=== PATIENT | male | born 1985 | race African-American/Black ===

== ENCOUNTER 2020-06-16 19:53 | Emergency (ER) | payer MEDICAID, OTHER ==
[~2020-06-16] VITALS: Ht 182.9 cm; Wt 74.8 kg
[2020-06-16] MEDS ORDERED: SODIUM CHLORIDE 0.9% 1,000 ML IV ONE (21:15)
[2020-06-16] MEDS ORDERED: ONDANSETRON HCL 4 MG/2 ML VIAL IV ONE (22:30)
[2020-06-16] MEDS ORDERED: PANTOPRAZOLE 40 MG/10 ML VIAL INJ IV ONE ×2 (22:30→23:43)
[2020-06-16 23:25] LABS: Basophils # (auto) 0 10 ^3/uL (0-0.2); Basophils % (auto) 0.3 % (0.0-2.0); Eosinophils # (auto) 0 10 ^3/uL (0-0.8); Hematocrit 44.2 % (41.0-53.0); Hemoglobin 15.3 g/dL (13.5-17.5); Lymphocytes # (auto) 0.5 10 ^3/uL (0.4-5.4); Lymphocytes % (auto) 7.2 % (10.0-50.0); Mean Corpuscular Hemoglobin 31.4 pg (28.0-32.0); Mean Corpuscular Hgb Conc. 34.5 g/dL (32.0-36.0); Mean Corpuscular Volume 91.1 fL (80.0-100.0); Monocytes # (auto) 0.1 10 ^3/uL (0-1.3); Monocytes % (auto) 1.7 % (0.0-12.0); Neutrophils # (auto) 6.6 10 ^3/uL (1.6-8.6); Neutrophils % (auto) 90.8 % (37.0-80.0); Platelet Count (auto) 252 10^3/uL (140-450); Red Blood Cells 4.86 10^6/uL (4.5-5.90); Red Cell Distribution Width 13.8 % (11.8-14.3); White Blood Cell 7.3 10^3/uL (4.4-10.8)
[2020-06-16 23:41] LABS: Albumin 4.1 g/dL (3.4-5.0); Calcium 9.4 mg/dL (8.5-10.1); Potassium 4.2 mmol/L (3.5-5.1)
[2020-06-16 23:43] LABS: BUN/Creatinine Ratio 8.7; Lactic Acid w/Reflex 2.5 mmol/L (0.4-2.0)
[2020-06-16] MEDS ORDERED: ONDANSETRON HCL 4 MG/2 ML VIAL ONE (23:43)
[2020-06-16 23:46] LABS: Bilirubin, Total 0.4 mg/dL (0.2-1.0); Total Protein 7.5 g/dL (6.4-8.2)
[2020-06-17] MEDS ORDERED: IOHEXOL 300 MG/ML 100ML BOTTLE IJ ONE (00:11)
[2020-06-17] MEDS ORDERED: METOCLOPRAMIDE HCL 5MG/ml INJ 2ml VIAL IV ONE (01:30)
[2020-06-17] MEDS ORDERED: CIPROFLOXACIN 400MG/200ML 200 ML IV ONE (02:15)
[2020-06-17] MEDS ORDERED: metroNIDAZOLE 500MG/100ML 100 ML IV ONE (02:15)
[2020-06-17] MEDS ORDERED: SODIUM CHLORIDE 0.9% 1,000 ML IV ONE ×3 (08:30)
[2020-06-17 09:25] VITALS: BP 106/48
== END 2020-06-17 10:06 | disposition left against medical advice (07) ==
LOC: ER 19:53 → UNDOADMIN 19:54 → OVERFLOW 19:54 → ER 06-17 10:06
DX: R10.31 Right lower quadrant pain (principal); R11.2 Nausea with vomiting, unspecified; R10.12 Left upper quadrant pain; J45.909 Unspecified asthma, uncomplicated; Z20.822 Contact with and (suspected) exposure to COVID-19; Z90.49 Acquired absence of other specified parts of digestive tract
CPT/HCPCS: 36415; 74177; 80053; 83605; 83690; 83735; 85025; 85610; 87426; 93005; 96361; 96365; 96368; 96375; 99285; C9113; C9803; J0744; J2405; J2765; J3490; J7030; J7060; Q9967; U0003

== ENCOUNTER 2020-07-01 13:59 | Emergency (ER) | payer MEDICAID ==
[~2020-07-01] VITALS: Ht 182.9 cm; Wt 74.8 kg
[2020-07-01] MEDS ORDERED: SODIUM CHLORIDE 0.9% 1,000 ML IVB ONE (14:15)
[2020-07-01] MEDS ORDERED: ONDANSETRON HCL 4 MG/2 ML VIAL IV ONE (14:15)
[2020-07-01] MEDS ORDERED: MORPHINE SULFATE 4 MG/ML SYR/VIAL IV ONE (14:15)
[2020-07-01] MEDS ORDERED: IOPAMIDOL 76 % (ISOVUE-370) 100ML BTL IV ONE (14:23)
[2020-07-01 14:32] LABS: Basophils # (auto) 0.1 10 ^3/uL (0-0.2); Basophils % (auto) 2.2 % (0.0-2.0); Eosinophils # (auto) 0.1 10 ^3/uL (0-0.8); Eosinophils % (auto) 2.7 % (0.0-7.0); Hemoglobin 13.8 g/dL (13.5-17.5); Lymphocytes # (auto) 2.2 10 ^3/uL (0.4-5.4); Lymphocytes % (auto) 47.3 % (10.0-50.0); Mean Corpuscular Hemoglobin 31.4 pg (28.0-32.0); Mean Corpuscular Hgb Conc. 34.5 g/dL (32.0-36.0); Mean Corpuscular Volume 91.1 fL (80.0-100.0); Monocytes # (auto) 0.4 10 ^3/uL (0-1.3); Monocytes % (auto) 8.3 % (0.0-12.0); Neutrophils # (auto) 1.8 10 ^3/uL (1.6-8.6); Neutrophils % (auto) 39.5 % (37.0-80.0); Nucleated Red Blood Cells % 0.2 %; Platelet Count (auto) 220 10^3/uL (140-450); Red Blood Cells 4.38 10^6/uL (4.5-5.90); Red Cell Distribution Width 14.3 % (11.8-14.3); White Blood Cell 4.6 10^3/uL (4.4-10.8)
[2020-07-01 14:48] LABS: INR 0.98 (0.9-1.15); Partial Thromboplastin Time 27.1 sec (23.0-31.2)
[2020-07-01 14:50] LABS: Albumin 3.4 g/dL (3.4-5.0); BUN/Creatinine Ratio 6.6; Calcium 8.1 mg/dL (8.5-10.1); Potassium 4.2 mmol/L (3.5-5.1)
[2020-07-01 14:53] LABS: Bilirubin, Total 0.3 mg/dL (0.2-1.0); Total Protein 6.5 g/dL (6.4-8.2)
[2020-07-01 15:15] VITALS: BP 100/63
== END 2020-07-01 15:28 | disposition home or self-care (01) ==
LOC: ER 13:59
DX: R10.31 Right lower quadrant pain (principal); F17.210 Nicotine dependence, cigarettes, uncomplicated; Z90.49 Acquired absence of other specified parts of digestive tract
CPT/HCPCS: 36415; 74177; 80053; 83690; 85025; 85610; 85730; 86850; 86900; 86901; 96361; 96374; 96375; 99285; J2270; J2405; J7030; Q9967

== ENCOUNTER 2020-08-31 21:42 | Emergency (ER) | payer MEDICAID ==
[~2020-08-31] VITALS: Ht 182.9 cm; Wt 86.2 kg
[2020-08-31 21:44] VITALS: BP 120/67
[2020-08-31] MEDS ORDERED: SODIUM CHLORIDE 0.9% 1,000 ML IV ONE ×2 (22:30)
[2020-08-31] MEDS ORDERED: TETRACAINE HCL 0.5% OPTH(EYE) SOLN 4ML EACHEYE ONE (23:00)
[2020-08-31] MEDS ORDERED: FLUORESCEIN SOD OPTH TEST STRIP EACHEYE ONE (23:00)
== END 2020-09-01 00:10 | disposition home or self-care (01) ==
LOC: ER 21:43
DX: T15.92XA Foreign body on external eye, part unspecified, left eye, initial encounter (principal); T15.91XA Foreign body on external eye, part unspecified, right eye, initial encounter; F17.210 Nicotine dependence, cigarettes, uncomplicated; Y92.89 Other specified places as the place of occurrence of the external cause
CPT/HCPCS: 96360; 99284; J7030

== ENCOUNTER → 2020-09-28 05:31 | Emergency (ER) | payer MEDICAID ==
[~2020-09-28] VITALS: Ht 182.9 cm; Wt 86.2 kg
[~2020-09-28 05:31] MED LIST: ONDANSETRON HCL 4 MG/2 ML VIAL IV ONE; PROCHLORPERAZINE EDISYLATE 5 MG/ML 2ML VIAL IV ONE; SODIUM CHLORIDE 0.9% 1,000 ML IV ONE
[2020-09-28 06:19] LABS: Basophils # (auto) 0.1 10 ^3/uL (0-0.2); Basophils % (auto) 0.9 % (0.0-2.0); Eosinophils # (auto) 0.1 10 ^3/uL (0-0.8); Eosinophils % (auto) 1.4 % (0.0-7.0); Hematocrit 43.8 % (41.0-53.0); Hemoglobin 15.2 g/dL (13.5-17.5); Lymphocytes # (auto) 2.5 10 ^3/uL (0.4-5.4); Lymphocytes % (auto) 31.9 % (10.0-50.0); Mean Corpuscular Hemoglobin 31.8 pg (28.0-32.0); Mean Corpuscular Hgb Conc. 34.7 g/dL (32.0-36.0); Mean Corpuscular Volume 91.7 fL (80.0-100.0); Monocytes # (auto) 0.5 10 ^3/uL (0-1.3); Monocytes % (auto) 6.3 % (0.0-12.0); Neutrophils # (auto) 4.6 10 ^3/uL (1.6-8.6); Neutrophils % (auto) 59.5 % (37.0-80.0); Nucleated Red Blood Cells % 0.1 %; Platelet Count (auto) 226 10^3/uL (140-450); Red Blood Cells 4.77 10^6/uL (4.5-5.90); Red Cell Distribution Width 14.5 % (11.8-14.3); White Blood Cell 7.8 10^3/uL (4.4-10.8)
[2020-09-28 06:39] LABS: Albumin 3.9 g/dL (3.4-5.0); Calcium 8.9 mg/dL (8.5-10.1); Magnesium 2.4 mg/dL (1.6-2.6)
[2020-09-28 06:41] LABS: BUN/Creatinine Ratio 8.7; Bilirubin, Total 0.2 mg/dL (0.2-1.0); Total Protein 7.3 g/dL (6.4-8.2)
[2020-09-28 10:42] VITALS: BP 136/84
== END | disposition home or self-care (01) ==
LOC: ER 05:31
DX: R10.9 Unspecified abdominal pain (principal); F12.99 Cannabis use, unspecified with unspecified cannabis-induced disorder
CPT/HCPCS: 36415; 80053; 83690; 83735; 85025; 96361; 96374; 96375; 99285; J0780; J2405; J7030

== ENCOUNTER 2020-11-04 13:00 | Emergency (ER) | payer MEDICAID ==
[~2020-11-04] VITALS: Ht 182.9 cm; Wt 86.2 kg
[2020-11-04] MEDS ORDERED: SODIUM CHLORIDE 0.9% 1,000 ML IV ONE ×2 (13:15)
[2020-11-04] MEDS ORDERED: MORPHINE SULFATE 4 MG/ML SYR/VIAL IV ONE (13:30)
[2020-11-04] MEDS ORDERED: PROCHLORPERAZINE EDISYLATE 5 MG/ML 2ML VIAL IV ONE (13:30)
[2020-11-04 13:37] LABS: Basophils # (auto) 0 10 ^3/uL (0-0.2); Eosinophils # (auto) 0.1 10 ^3/uL (0-0.8); Eosinophils % (auto) 2.1 % (0.0-7.0); Hematocrit 43.9 % (41.0-53.0); Hemoglobin 15.2 g/dL (13.5-17.5); Lymphocytes # (auto) 1.6 10 ^3/uL (0.4-5.4); Lymphocytes % (auto) 51.2 % (10.0-50.0); Mean Corpuscular Hemoglobin 31.2 pg (28.0-32.0); Mean Corpuscular Hgb Conc. 34.5 g/dL (32.0-36.0); Mean Corpuscular Volume 90.3 fL (80.0-100.0); Monocytes # (auto) 0.3 10 ^3/uL (0-1.3); Monocytes % (auto) 9.4 % (0.0-12.0); Neutrophils # (auto) 1.1 10 ^3/uL (1.6-8.6); Neutrophils % (auto) 36.3 % (37.0-80.0); Nucleated Red Blood Cells % 0.3 %; Platelet Count (auto) 257 10^3/uL (140-450); Red Blood Cells 4.86 10^6/uL (4.5-5.90); Red Cell Distribution Width 14.2 % (11.8-14.3)
[2020-11-04 13:43] LABS: Urine Bacteria FEW /hpf (None Seen); Urine Blood Negative /uL (Negative); Urine Mucus FEW (None Seen); Urine Sperm PRESENT /hpf (None Seen); Urine WBC 2 /hpf (0 - 3)
[2020-11-04 13:53] LABS: Albumin 4.3 g/dL (3.4-5.0); Calcium 9.2 mg/dL (8.5-10.1); Potassium 4.9 mmol/L (3.5-5.1)
[2020-11-04 13:54] LABS: Amphetamine Screen, Urine NEGATIVE (NEGATIVE); Barbiturate Scree,Urine NEGATIVE (NEGATIVE); Benzodiazephine Screen, Urine NEGATIVE (NEGATIVE); Cannabinoid Screen, Urine POSITIVE (NEGATIVE); Cocaine Screen, Urine NEGATIVE (NEGATIVE); Opiate Scree,Urine NEGATIVE (NEGATIVE); Phencyclidine Screen, Urine NEGATIVE (NEGATIVE)
[2020-11-04 13:57] LABS: BUN/Creatinine Ratio 10.3; Bilirubin, Total 0.4 mg/dL (0.2-1.0); Total Protein 7.5 g/dL (6.4-8.2)
[2020-11-04 14:59] VITALS: BP 120/60
== END 2020-11-04 15:01 | disposition home or self-care (01) ==
LOC: ER 13:00
DX: R10.84 Generalized abdominal pain (principal); R11.2 Nausea with vomiting, unspecified; R19.7 Diarrhea, unspecified; F17.210 Nicotine dependence, cigarettes, uncomplicated; Z90.49 Acquired absence of other specified parts of digestive tract
CPT/HCPCS: 36415; 74176; 80053; 80307; 81001; 85025; 85049; 96360; 99284; J7030

== ENCOUNTER 2021-01-02 08:22 | Emergency (ER) | payer MEDICAID ==
[~2021-01-02] VITALS: Ht 182.9 cm; Wt 86.2 kg
[2021-01-02 09:34] LABS: Basophils # (auto) 0.1 10 ^3/uL (0-0.2); Basophils % (auto) 1.5 % (0.0-2.0); Eosinophils # (auto) 0.1 10 ^3/uL (0-0.8); Eosinophils % (auto) 1.1 % (0.0-7.0); Hematocrit 45.2 % (41.0-53.0); Hemoglobin 15.6 g/dL (13.5-17.5); Lymphocytes # (auto) 1.6 10 ^3/uL (0.4-5.4); Lymphocytes % (auto) 25.5 % (10.0-50.0); Mean Corpuscular Hemoglobin 30.7 pg (28.0-32.0); Mean Corpuscular Hgb Conc. 34.5 g/dL (32.0-36.0); Monocytes # (auto) 0.3 10 ^3/uL (0-1.3); Monocytes % (auto) 4.8 % (0.0-12.0); Neutrophils # (auto) 4.3 10 ^3/uL (1.6-8.6); Neutrophils % (auto) 67.1 % (37.0-80.0); Nucleated Red Blood Cells % 0.1 %; Red Blood Cells 5.08 10^6/uL (4.5-5.90); Red Cell Distribution Width 13.5 % (11.8-14.3); White Blood Cell 6.4 10^3/uL (4.4-10.8)
[2021-01-02 09:47] LABS: Urine Bacteria NONE SEEN /hpf (None Seen); Urine Blood Negative /uL (Negative); Urine Mucus FEW (None Seen); Urine Specific Gravity 1.033 (1.001-1.035); Urine WBC 2 /hpf (0 - 3)
[2021-01-02 09:50] LABS: BUN/Creatinine Ratio 14.6; Calcium 9.1 mg/dL (8.5-10.1); Potassium 3.5 mmol/L (3.5-5.1)
[2021-01-02 09:53] LABS: Bilirubin, Total 0.7 mg/dL (0.2-1.0); Total Protein 7.6 g/dL (6.4-8.2)
[2021-01-02 10:04] LABS: Alcohol, Urine < 3.0 mg/dL (0-10); Amphetamine Screen, Urine POSITIVE (NEGATIVE); Barbiturate Scree,Urine NEGATIVE (NEGATIVE); Benzodiazephine Screen, Urine NEGATIVE (NEGATIVE); Cannabinoid Screen, Urine POSITIVE (NEGATIVE); Cocaine Screen, Urine NEGATIVE (NEGATIVE); Phencyclidine Screen, Urine NEGATIVE (NEGATIVE)
[2021-01-02 10:11] LABS: Opiate Scree,Urine NEGATIVE (NEGATIVE)
[2021-01-02] MEDS ORDERED: ONDANSETRON HCL 4 MG/2 ML VIAL IV ONE (12:00)
[2021-01-02] MEDS ORDERED: SODIUM CHLORIDE 0.9% 500 ML IV ONE (12:00)
[2021-01-02 14:04] VITALS: BP 116/71
== END 2021-01-02 14:04 | disposition home or self-care (01) ==
LOC: ER 08:22
DX: K29.70 Gastritis, unspecified, without bleeding (principal); F12.188 Cannabis abuse with other cannabis-induced disorder; Z20.822 Contact with and (suspected) exposure to COVID-19
CPT/HCPCS: 36415; 71045; 80053; 80307; 81001; 85025; 87426; 96361; 96374; 99285; J2405; J7040

== ENCOUNTER → 2021-04-01 | Outpatient (CLI) | payer MEDICAID | END | disposition home or self-care (01) | LOC: LAB 11:34 | PROVIDERS: ATTEND Nurse Practitioner Family | DX: R35.0 Frequency of micturition (principal) | CPT/HCPCS: 87086 ==

== ENCOUNTER 2021-10-02 22:58 | Emergency (ER) | payer MEDICAID ==
[~2021-10-02] VITALS: Ht 182.9 cm; Wt 72.6 kg
[2021-10-03] MEDS ORDERED: methylPREDNISolone SOD SUCC 125 MG/2 ML VL IM ONE (07:30)
[2021-10-03] MEDS ORDERED: diphenhdrAMINE HCL 50 MG/1 ML VL IM ONE (07:30)
[2021-10-03] MEDS ORDERED: PRED20TA2 PO (07:33)
[2021-10-03] MEDS ORDERED: DIPH25CA66 PO (07:33)
[2021-10-03 07:44] VITALS: BP 110/89
== END 2021-10-03 08:09 | disposition home or self-care (01) ==
LOC: ER 22:58
DX: T78.40XA Allergy, unspecified, initial encounter (principal); J45.909 Unspecified asthma, uncomplicated; F17.210 Nicotine dependence, cigarettes, uncomplicated; Z90.49 Acquired absence of other specified parts of digestive tract; Z79.899 Other long term (current) drug therapy; Y92.89 Other specified places as the place of occurrence of the external cause
CPT/HCPCS: 93005; 96372; 99284; J1200; J2930

== ENCOUNTER 2021-10-05 18:24 | Emergency (ER) | payer MEDICAID ==
[~2021-10-05] VITALS: Ht 188 cm; Wt 86.2 kg
[~2021-10-05 18:24] MED LIST changes: +DIPH25CA66 PO; -ONDANSETRON HCL 4 MG/2 ML VIAL IV ONE; +PRED20TA2 PO; -PROCHLORPERAZINE EDISYLATE 5 MG/ML 2ML VIAL IV ONE; -SODIUM CHLORIDE 0.9% 1,000 ML IV ONE
[2021-10-05 18:34] VITALS: BP 145/96
[2021-10-05] MEDS ORDERED: METOCLOPRAMIDE HCL 5MG/ml INJ 2ml VIAL IV ONE (19:00)
[2021-10-05] MEDS ORDERED: SODIUM CHLORIDE 0.9% 1,000 ML IV ONE (19:00)
[2021-10-05 19:27] LABS: Basophils # (auto) 0 10 ^3/uL (0-0.2); Basophils % (auto) 0.3 % (0.0-2.0); Eosinophils # (auto) 0 10 ^3/uL (0-0.8); Eosinophils % (auto) 0.1 % (0.0-7.0); Hematocrit 41.7 % (41.0-53.0); Hemoglobin 14.3 g/dL (13.5-17.5); Lymphocytes # (auto) 0.9 10 ^3/uL (0.4-5.4); Lymphocytes % (auto) 10.3 % (10.0-50.0); Mean Corpuscular Hemoglobin 31.2 pg (28.0-32.0); Mean Corpuscular Hgb Conc. 34.4 g/dL (32.0-36.0); Mean Corpuscular Volume 90.6 fL (80.0-100.0); Monocytes # (auto) 0.3 10 ^3/uL (0-1.3); Neutrophils # (auto) 7.1 10 ^3/uL (1.6-8.6); Neutrophils % (auto) 86.3 % (37.0-80.0); Red Cell Distribution Width 13.9 % (11.8-14.3); White Blood Cell 8.2 10^3/uL (4.4-10.8)
[2021-10-05 19:42] LABS: Albumin 4.2 g/dL (3.4-5.0); BUN/Creatinine Ratio 11.9; Calcium 9.4 mg/dL (8.5-10.1); Potassium 3.8 mmol/L (3.5-5.1)
[2021-10-05 19:45] LABS: Bilirubin, Total 0.5 mg/dL (0.2-1.0); Total Protein 7.2 g/dL (6.4-8.2)
== END 2021-10-05 22:17 | disposition home or self-care (01) ==
LOC: EDBD 18:24 → ER 18:24
DX: R11.2 Nausea with vomiting, unspecified (principal); R10.13 Epigastric pain; J45.909 Unspecified asthma, uncomplicated; E11.9 Type 2 diabetes mellitus without complications; F17.210 Nicotine dependence, cigarettes, uncomplicated; Z90.49 Acquired absence of other specified parts of digestive tract; Z79.899 Other long term (current) drug therapy
CPT/HCPCS: 36415; 80053; 83690; 85025; 93005; 96361; 96374; 99284; J2765; J7030

== ENCOUNTER 2022-04-14 06:51 | Emergency (ER) | payer MEDICAID ==
[~2022-04-14] VITALS: Ht 182.9 cm; Wt 82.1 kg
[2022-04-14 07:05] VITALS: BP 122/77
[2022-04-14 07:37] LABS: Basophils # (auto) 0 10 ^3/uL (0-0.2); Basophils % (auto) 0.7 % (0.0-2.0); Eosinophils # (auto) 0 10 ^3/uL (0-0.8); Eosinophils % (auto) 0.7 % (0.0-7.0); Hematocrit 47.3 % (41.0-53.0); Hemoglobin 15.7 g/dL (13.5-17.5); Lymphocytes % (auto) 47.4 % (10.0-50.0); Mean Corpuscular Hemoglobin 29.9 pg (28.0-32.0); Mean Corpuscular Hgb Conc. 33.2 g/dL (32.0-36.0); Mean Corpuscular Volume 90.2 fL (80.0-100.0); Monocytes # (auto) 0.4 10 ^3/uL (0-1.3); Monocytes % (auto) 8.6 % (0.0-12.0); Neutrophils # (auto) 1.8 10 ^3/uL (1.6-8.6); Neutrophils % (auto) 42.6 % (37.0-80.0); Nucleated Red Blood Cells % 0.1 %; Red Blood Cells 5.25 10^6/uL (4.5-5.90); Red Cell Distribution Width 13.9 % (11.8-14.3); White Blood Cell 4.2 10^3/uL (4.4-10.8)
[2022-04-14 07:56] LABS: Albumin 4.1 g/dL (3.4-5.0); BUN/Creatinine Ratio 13.5; Calcium 9.1 mg/dL (8.5-10.1); Potassium 4.4 mmol/L (3.5-5.1)
[2022-04-14 08:14] LABS: Bilirubin, Total 0.8 mg/dL (0.2-1.0); Total Protein 7.2 g/dL (6.4-8.2)
[2022-04-14 09:20] LABS: Urine Bacteria NONE SEEN /hpf (None Seen); Urine Blood Negative /uL (Negative); Urine Specific Gravity 1.029 (1.001-1.035); Urine WBC 2 /hpf (0 - 3)
== END 2022-04-14 13:35 | disposition home or self-care (01) ==
LOC: ER 06:51
DX: R10.9 Unspecified abdominal pain (principal); E11.9 Type 2 diabetes mellitus without complications; J45.909 Unspecified asthma, uncomplicated; F17.210 Nicotine dependence, cigarettes, uncomplicated; Z90.49 Acquired absence of other specified parts of digestive tract; Z79.899 Other long term (current) drug therapy
CPT/HCPCS: 36415; 74176; 80053; 81001; 85025

== ENCOUNTER 2023-01-06 17:04 | Emergency (ER) | payer MEDICAID ==
[~2023-01-06] VITALS: Ht 182.9 cm; Wt 80.7 kg
[2023-01-06 18:04] LABS: Urine Bacteria NONE SEEN /hpf (None Seen); Urine Blood Negative /uL (Negative); Urine Clarity Clear (Clear); Urine Color Yellow (Yellow); Urine Protein, UAD Negative (Negative); Urine Urobilinogen Normal (Negative); Urine WBC 4 /hpf (0 - 3); Urine pH 5.5 (5.0-8.0)
[2023-01-06 18:11] LABS: Basophils # (auto) 0 10 ^3/uL (0-0.2); Eosinophils # (auto) 0.1 10 ^3/uL (0-0.8); Eosinophils % (auto) 2.2 % (0.0-7.0); Hematocrit 40.8 % (41.0-53.0); Hemoglobin 13.8 g/dL (13.5-17.5); Lymphocytes # (auto) 2.3 10 ^3/uL (0.4-5.4); Lymphocytes % (auto) 52.6 % (10.0-50.0); Mean Corpuscular Hemoglobin 30.2 pg (28.0-32.0); Mean Corpuscular Hgb Conc. 33.7 g/dL (32.0-36.0); Mean Corpuscular Volume 89.7 fL (80.0-100.0); Monocytes # (auto) 0.3 10 ^3/uL (0-1.3); Monocytes % (auto) 7.8 % (0.0-12.0); Neutrophils # (auto) 1.6 10 ^3/uL (1.6-8.6); Neutrophils % (auto) 36.4 % (37.0-80.0); Nucleated Red Blood Cells % 0.2 %; Red Blood Cells 4.55 10^6/uL (4.5-5.90); Red Cell Distribution Width 14.2 % (11.8-14.3); White Blood Cell 4.4 10^3/uL (4.4-10.8)
[2023-01-06 18:23] LABS: Alanine Aminotransferase 18 U/L (7-40); Albumin 4.2 g/dL (3.2-4.8); Alkaline Phosphatase 68 U/L (46-116); Anion Gap 1.9 (5-15); Aspartate Aminotransferase 9 U/L (13-40); BUN/Creatinine Ratio 7.1 (10.0-20.0); Bilirubin, Total 0.5 mg/dL (0.2-1.0); Blood Urea Nitrogen 9 mg/dL (9-23); Calcium 8.9 mg/dL (8.7-10.4); Carbon Dioxide 26.1 mmol/L (20-30); Chloride 109 mmol/L (98-107); Glucose 101 mg/dL (74-106); Potassium 4.1 mmol/L (3.5-5.1); Sodium 137 mmol/L (136-145); Total Protein 6.6 g/dL (5.7-8.2)
[2023-01-06] MEDS ORDERED: MORPHINE SULFATE 4 MG/ML SYR/VIAL IV ONE (19:15)
[2023-01-06] MEDS ORDERED: PANTOPRAZOLE 40 MG/10 ML VIAL INJ IV ONE (19:15)
[2023-01-06] MEDS ORDERED: SODIUM CHLORIDE 0.9% 1,000 ML IV ONE (19:15)
[2023-01-06] MEDS ORDERED: ONDANSETRON HCL 4 MG/2 ML VIAL IV ONE (19:15)
[2023-01-06 19:58] VITALS: TEMP 98; O2SAT 99
[2023-01-06 20:41] VITALS: BP 123/76; PULSE 61; RESP 17
[2023-01-06] MEDS ORDERED: FAMO20TA10 PO (20:46)
[2023-01-06] MEDS ORDERED: DICY10CA PO (20:46)
[2023-01-06] MEDS ORDERED: ZOFR4T PO (20:46)
== END 2023-01-06 21:39 | disposition home or self-care (01) ==
LOC: ER 17:04
DX: K44.9 Diaphragmatic hernia without obstruction or gangrene (principal); K29.70 Gastritis, unspecified, without bleeding; R10.13 Epigastric pain; E11.9 Type 2 diabetes mellitus without complications; J45.909 Unspecified asthma, uncomplicated; F17.210 Nicotine dependence, cigarettes, uncomplicated; F15.90 Other stimulant use, unspecified, uncomplicated; Z90.49 Acquired absence of other specified parts of digestive tract; Z79.899 Other long term (current) drug therapy
CPT/HCPCS: 36415; 74176; 80053; 81001; 83690; 85025; 96361; 96374; 96375; 99285; C9113; J2270; J2405; J7030

== ENCOUNTER 2023-01-12 00:37 | Inpatient (IN) | payer MEDICAID ==
[~2023-01-12] VITALS: Ht 182.9 cm; Wt 79.0 kg
[2023-01-12] VITALS (10 sets, daily range): BP systolic 111–121; BP diastolic 71–79; PULSE 58–74; RESP 14–20; TEMP 97.7–98.1; O2SAT 95–100
[~2023-01-12 00:37] MED LIST changes: +DICY10CA PO; +FAMO20TA10 PO; +ZOFR4T PO
[2023-01-12] MEDS ORDERED: ONDANSETRON HCL 4 MG/2 ML VIAL IV ONE (01:15)
[2023-01-12 01:55] LABS: Basophils # (auto) 0.1 10 ^3/uL (0-0.2); Basophils % (auto) 0.8 % (0.0-2.0); Eosinophils # (auto) 0 10 ^3/uL (0-0.8); Eosinophils % (auto) 0.4 % (0.0-7.0); Hematocrit 45.2 % (41.0-53.0); Hemoglobin 15.5 g/dL (13.5-17.5); Lymphocytes # (auto) 1.7 10 ^3/uL (0.4-5.4); Lymphocytes % (auto) 21.5 % (10.0-50.0); Mean Corpuscular Hemoglobin 30.5 pg (28.0-32.0); Mean Corpuscular Hgb Conc. 34.3 g/dL (32.0-36.0); Monocytes # (auto) 0.2 10 ^3/uL (0-1.3); Monocytes % (auto) 3.2 % (0.0-12.0); Neutrophils # (auto) 5.7 10 ^3/uL (1.6-8.6); Neutrophils % (auto) 74.1 % (37.0-80.0); Red Blood Cells 5.07 10^6/uL (4.5-5.90); Red Cell Distribution Width 13.7 % (11.8-14.3); White Blood Cell 7.7 10^3/uL (4.4-10.8)
[2023-01-12 01:57] LABS: Alanine Aminotransferase 18 U/L (7-40); Alkaline Phosphatase 70 U/L (46-116); Anion Gap 8 (5-15); Aspartate Aminotransferase 9 U/L (13-40); BUN/Creatinine Ratio 5.8 (10.0-20.0); Blood Urea Nitrogen 7 mg/dL (9-23); Calcium 10.1 mg/dL (8.7-10.4); Carbon Dioxide 28 mmol/L (20-30); Chloride 103 mmol/L (98-107); Glucose 143 mg/dL (74-106); Magnesium 2.1 mg/dL (1.6-2.6); Potassium 3.2 mmol/L (3.5-5.1); Sodium 139 mmol/L (136-145)
[2023-01-12 01:58] LABS: Bilirubin, Total 0.6 mg/dL (0.2-1.0); Total Protein 7.8 g/dL (5.7-8.2)
[2023-01-12] MEDS ORDERED: PANTOPRAZOLE 80 MG in SODIUM CHL 0.9% 100 ML IV ONE (02:15)
[2023-01-12] MEDS ORDERED: PANTOPRAZOLE 40 MG/10 ML VIAL INJ IV ONE (02:25)
[2023-01-12] MEDS ORDERED: METOCLOPRAMIDE HCL 5MG/ml INJ 2ml VIAL IV ONE (02:30)
[2023-01-12] MEDS ORDERED: LORazepam 2MG/ML-1ML VIAL IV ONE (04:00)
[2023-01-12] MEDS ORDERED: SODIUM CHLORIDE 0.9% 1,000 ML IV ONE (06:15)
[2023-01-12] MEDS ORDERED: ONDANSETRON HCL 4 MG/2 ML VIAL IV PRN (06:30)
[2023-01-12] MEDS ORDERED: POTASSIUM EFFERVESENT TAB 25 MEQ PO ONE (06:30)
[2023-01-12] MEDS ORDERED: ALBUTEROL SULF 2.5 MG/0.5ML(0.5%) NEB SOLN NEB PRN (06:30)
[2023-01-12] MEDS: SODIUM CHLORIDE 0.9% 1,000 ML IV SCH (09:54)
[2023-01-12] MEDS: PANTOPRAZOLE 40 MG/10 ML VIAL INJ IV SCH ×2 (10:05→22:00)
[2023-01-12 11:02] LABS: Amphetamine Screen, Urine Neg (NEGATIVE)
[2023-01-12 11:03] LABS: Barbiturate Scree,Urine Neg (NEGATIVE); Benzodiazephine Screen, Urine Neg (NEGATIVE); Cocaine Screen, Urine Neg (NEGATIVE)
[2023-01-12 11:04] LABS: Cannabinoid Screen, Urine Pos (NEGATIVE); Opiate Scree,Urine Neg (NEGATIVE); Phencyclidine Screen, Urine Neg (NEGATIVE)
[2023-01-12 12:12] LABS: Urine Bacteria NONE SEEN /hpf (None Seen); Urine Mucus FEW (None Seen); Urine WBC 3 /hpf (0 - 3)
[2023-01-13] MEDS: SODIUM CHLORIDE 0.9% 1,000 ML IV SCH ×2 (02:48→12:10)
[2023-01-13 04:29] VITALS: BP 115/73; PULSE 57; RESP 18; TEMP 97.7; O2SAT 97
[2023-01-13 05:50] LABS: Basophils # (auto) 0.1 10 ^3/uL (0-0.2); Basophils % (auto) 1.3 % (0.0-2.0); Eosinophils # (auto) 0.1 10 ^3/uL (0-0.8); Eosinophils % (auto) 1.6 % (0.0-7.0); Hematocrit 42.8 % (41.0-53.0); Hemoglobin 14.4 g/dL (13.5-17.5); Lymphocytes # (auto) 2.3 10 ^3/uL (0.4-5.4); Lymphocytes % (auto) 54.1 % (10.0-50.0); Mean Corpuscular Hemoglobin 30.2 pg (28.0-32.0); Mean Corpuscular Hgb Conc. 33.7 g/dL (32.0-36.0); Mean Corpuscular Volume 89.7 fL (80.0-100.0); Monocytes # (auto) 0.3 10 ^3/uL (0-1.3); Monocytes % (auto) 7.1 % (0.0-12.0); Neutrophils # (auto) 1.5 10 ^3/uL (1.6-8.6); Neutrophils % (auto) 35.9 % (37.0-80.0); Nucleated Red Blood Cells % 0.1 %; Red Blood Cells 4.77 10^6/uL (4.5-5.90); Red Cell Distribution Width 13.5 % (11.8-14.3); White Blood Cell 4.2 10^3/uL (4.4-10.8)
[2023-01-13 06:03] LABS: Alanine Aminotransferase 12 U/L (7-40); Alkaline Phosphatase 55 U/L (46-116); Anion Gap 6 (5-15); Aspartate Aminotransferase < 8 U/L (13-40); BUN/Creatinine Ratio 5.7 (10.0-20.0); Blood Urea Nitrogen 7 mg/dL (9-23); Calcium 9.1 mg/dL (8.7-10.4); Carbon Dioxide 28 mmol/L (20-30); Chloride 106 mmol/L (98-107); Glucose 90 mg/dL (74-106); Potassium 3.9 mmol/L (3.5-5.1); Sodium 140 mmol/L (136-145)
[2023-01-13 06:04] LABS: Total Protein 6.2 g/dL (5.7-8.2)
[2023-01-13 09:00] VITALS: BP 116/74; PULSE 62; RESP 16; TEMP 98.3; O2SAT 98
[2023-01-13] MEDS: PANTOPRAZOLE 40 MG/10 ML VIAL INJ IV SCH (11:01)
[2023-01-13 13:14] VITALS: BP 108/74; PULSE 62; RESP 20; TEMP 98.4; O2SAT 100
[2023-01-13 15:03] VITALS: BP 108/74; PULSE 62; RESP 20; TEMP 98.4; O2SAT 100
[2023-01-13 15:22] VITALS: O2SAT 95
== END 2023-01-13 15:22 | disposition home or self-care (01) | DRG 241 ==
LOC: ER 00:37 → OVERFLOW 06:17 → CENTRAL 12:45
PROVIDERS: ADMIT Internal Medicine; ATTEND Student in an Organized Health Care Education/Training Program
DX: K29.00 Acute gastritis without bleeding (principal); A05.9 Bacterial foodborne intoxication, unspecified; E11.9 Type 2 diabetes mellitus without complications; E87.6 Hypokalemia; F12.90 Cannabis use, unspecified, uncomplicated; K44.9 Diaphragmatic hernia without obstruction or gangrene; F17.210 Nicotine dependence, cigarettes, uncomplicated; J45.909 Unspecified asthma, uncomplicated; Z90.49 Acquired absence of other specified parts of digestive tract
CPT/HCPCS: 36415; 71045; 74176; 80053; 80307; 81015; 83690; 83735; 84484; 85025; 93005; 96365; 96375; C9113; G0378; J2405

== ENCOUNTER 2023-09-06 10:22 | Emergency (ER) | payer BC, MEDICAID ==
[~2023-09-06] VITALS: Ht 182.9 cm; Wt 77.2 kg
[~2023-09-06 10:22] MED LIST changes: -PRED20TA2 PO
[2023-09-06] MEDS ORDERED: METH-1182 PO (11:39)
[2023-09-06] MEDS ORDERED: IBUP-1456 PO (11:39)
[2023-09-06] MEDS: KETOROLAC TROMETH 60MG/2ML VIAL IM ONE (11:52)
[2023-09-06 12:25] VITALS: BP 107/66; PULSE 67; RESP 18; TEMP 98.2; O2SAT 99
== END 2023-09-06 12:27 | disposition home or self-care (01) ==
LOC: ER 10:22
DX: S39.012A Strain of muscle, fascia and tendon of lower back, initial encounter (principal); E11.9 Type 2 diabetes mellitus without complications; J45.909 Unspecified asthma, uncomplicated; F17.210 Nicotine dependence, cigarettes, uncomplicated; F15.90 Other stimulant use, unspecified, uncomplicated; Z98.890 Other specified postprocedural states; Z79.899 Other long term (current) drug therapy; X50.0XXA Overexertion from strenuous movement or load, initial encounter; Y93.89 Activity, other specified; Y92.89 Other specified places as the place of occurrence of the external cause; Y99.8 Other external cause status
CPT/HCPCS: 96372; 99283; J1885

== ENCOUNTER 2023-11-17 12:12 | Emergency (ER) | payer BC, MEDICAID ==
[~2023-11-17] VITALS: Ht 182.9 cm; Wt 74.3 kg
[~2023-11-17 12:12] MED LIST changes: +IBUP-1456 PO; +METH-1182 PO
[2023-11-17 13:45] VITALS: BP 110/75; PULSE 77; RESP 16; TEMP 97.8; O2SAT 98
== END 2023-11-17 13:48 | disposition home or self-care (01) ==
LOC: ER 12:14
DX: S63.501A Unspecified sprain of right wrist, initial encounter (principal); J45.909 Unspecified asthma, uncomplicated; E11.9 Type 2 diabetes mellitus without complications; F17.210 Nicotine dependence, cigarettes, uncomplicated; F12.90 Cannabis use, unspecified, uncomplicated; F15.90 Other stimulant use, unspecified, uncomplicated; Z90.49 Acquired absence of other specified parts of digestive tract; Z79.1 Long term (current) use of non-steroidal anti-inflammatories (NSAID); Z79.899 Other long term (current) drug therapy; X58.XXXA Exposure to other specified factors, initial encounter; Y93.89 Activity, other specified; Y92.89 Other specified places as the place of occurrence of the external cause; Y99.8 Other external cause status
CPT/HCPCS: 73110

== ENCOUNTER 2024-07-29 17:15 | Emergency (ER) | payer BC, MEDICAID ==
[~2024-07-29] VITALS: Ht 182.9 cm; Wt 76.4 kg
[2024-07-29] MEDS ORDERED: NAP500T PO (19:18)
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
[2024-07-29 19:40] VITALS: BP 107/70; PULSE 76; RESP 18; TEMP 97.6; O2SAT 99
== END 2024-07-29 19:43 | disposition home or self-care (01) ==
LOC: ER 17:19
DX: S46.912A Strain of unspecified muscle, fascia and tendon at shoulder and upper arm level, left arm, initial encounter (principal); J45.909 Unspecified asthma, uncomplicated; E11.9 Type 2 diabetes mellitus without complications; K21.9 Gastro-esophageal reflux disease without esophagitis; F17.210 Nicotine dependence, cigarettes, uncomplicated; F12.90 Cannabis use, unspecified, uncomplicated; Z90.49 Acquired absence of other specified parts of digestive tract; Z79.1 Long term (current) use of non-steroidal anti-inflammatories (NSAID); Z79.899 Other long term (current) drug therapy; X58.XXXA Exposure to other specified factors, initial encounter; Y93.89 Activity, other specified; Y92.89 Other specified places as the place of occurrence of the external cause; Y99.8 Other external cause status
CPT/HCPCS: 73030

== ENCOUNTER 2024-08-08 18:45 | Emergency (ER) | payer MEDICAID ==
[~2024-08-08] VITALS: Ht 185.4 cm; Wt 70.6 kg
[~2024-08-08 18:45] MED LIST changes: +NAP500T PO
[2024-08-08 20:01] VITALS: BP 124/75; PULSE 97; RESP 19; TEMP 98.1; O2SAT 99
[2024-08-08] MEDS: LIDOCAINE 1% HCL (LOCAL ANESTH.) INJ 20ML MDV ID ONE (20:29)
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
[2024-08-08] MEDS: TETANUS-DIPTH-ACEL PERTUSSIS 0.5ML SYR Tdap IM ONE (20:46)
== END 2024-08-08 20:54 | disposition home or self-care (01) ==
LOC: ER 18:45
DX: S61.412A Laceration without foreign body of left hand, initial encounter (principal); F12.90 Cannabis use, unspecified, uncomplicated; J45.909 Unspecified asthma, uncomplicated; E11.9 Type 2 diabetes mellitus without complications; F17.210 Nicotine dependence, cigarettes, uncomplicated; Z90.49 Acquired absence of other specified parts of digestive tract; Z79.1 Long term (current) use of non-steroidal anti-inflammatories (NSAID); W26.9XXA Contact with unspecified sharp object(s), initial encounter; Y93.89 Activity, other specified; Y92.89 Other specified places as the place of occurrence of the external cause; Y99.8 Other external cause status
CPT/HCPCS: 12001; 90471; 90715; 99283; J2003

== ENCOUNTER 2024-08-13 14:50 | Emergency (ER) | payer MEDICAID ==
[~2024-08-13] VITALS: Ht 182.9 cm; Wt 8.0 kg
[2024-08-13 15:15] VITALS: BP 111/62; PULSE 74; RESP 20; TEMP 99; O2SAT 98
[2024-08-13] MEDS ORDERED: PROCHLORPERAZINE EDISYLATE 5 MG/ML 2ML VIAL IV ONE (15:30)
[2024-08-13] MEDS ORDERED: SODIUM CHLORIDE 0.9% 1,000 ML IVB ONE (15:30)
--- NOTE | 2024-08-13 15:37 | ED.PDOC ---
GI ASSESSMENT HPI Comments 39 y/o M, with PMHx of gastritis presents to the ED for CC of nausea and vomiting. Patient states, that he has been experiencing nausea and vomiting with associated LUQ abdominal pain x3days. Patient endorses, new onset symptoms of fever, chills, and dizziness starting today (08/13/24). Patient complains of current 8/10 pain. Patient has been seen multiple times at [facility] for similar symptoms in the past. Patient smokes marijuana, denies ETOH consumption or tobacco usage. No other symptoms or modifying factors present at this time. Time Seen by MD: 15:30 Primary Care Provider: JEFF Reviewed Notes: Nurses Notes, Medications, Allergies Allergies: Coded Allergies: NO KNOWN ALLERGIES (Unverified , 06/16/20) Home Meds Active Scripts Ondansetron Odt 4MG Tab (ZOFRAN PO) 4 Mg Tb, 4 MG PO Q8HP PRN for 5 Days, #15 TAB ODT TAB-DISSOLVE IN MOUTH, THEN SWALLOW Prov:RAMA ROSE MD 08/13/24 Pantoprazole Sodium Sesquihydr (Protonix) 40 Mg Tab, 40 MG PO DAILY, #30 TAB Prov:RAMA ROSE MD 08/13/24 Naproxen (NAPROSYN TABLET) 500 Mg Tb, 1 TAB PO BID PRN, #30 TAB 0 Refills Prov:CRUZ GOOD 07/29/24 Ibuprofen (Ibuprofen) 800 Mg Tab, 1 TAB PO TID, #30 TAB Prov:KATHLEEN TURNER 11/17/23 Methocarbamol (Methocarbamol) 750 Mg Tab, 750 MG PO BID, #20 TAB Prov:KATHLEEN TURNER 09/06/23 Ibuprofen (Ibuprofen) 800 Mg Tab, 1 TAB PO TID, #30 TAB Prov:KATHLEEN TURNER 09/06/23 Famotidine (PEPCID TABLET) 20 Mg Tb, 1 TAB PO BID for 30 Days, #60 TAB Prov:MIKY AVINA SIGHT MOUNTER 01/06/23 Ondansetron Odt 4MG Tab (ZOFRAN PO) 4 Mg Tb, 1 TAB PO Q8HR, #20 TAB ODT TAB-DISSOLVE IN MOUTH, THEN SWALLOW as needed for nausea vomiting Prov:MIKY AVINA SIGHT MOUNTER 01/06/23 Dicyclomine Hcl (BENTYL CAPSULE) 10 Mg Cp, 2 CAP PO TID, #30 CAP 11 Refills As needed for abdominal cramps Prov:AVINAMIKY Jerson SIGHT MOUNTER 01/06/23 Diphenhydramine Hcl (Benadryl Allergy) 25 Mg Cap, 2 CAP PO Q4HPRN, #30 CAP 0 Refills Prov:CRUZ GOOD 10/03/21 Information Source: Patient Mode of Arrival: Ambulatory Timing: Days Duration: Since onset Prehospital treatment: None Quality: None Vomitus: Watery Stool: Normal Severity: Moderate Recent: None Recent Hx of: None Pain Location: LUQ Modifying Factors: Nothing Associated sign and symptoms: Nausea, Vomiting Past Medical History PAST MEDICAL HISTORY: Asthma, DM, GERD Surgical History: Cholecystectomy Family History Family History: Unknown Social History Smoker: Cigarettes, Less Than 1 Pack/Day Alcohol: Denies ETOH Use Drugs: Marijuana Lives In: Home Constitutional: reports: chills, fever; denies: diaphoresis, fatigue, malaise, sweats, weakness, others EENTM: denies: blurred vision, double vision, ear bleeding, ear discharge, ear drainage, ear pain, ear ringing, eye pain, eye redness, hearing loss, mouth pain, mouth swelling, nasal discharge, nose bleeding, nose congestion, nose pain, photophobia, tearing, throat pain, throat swelling, voice changes, others Respiratory: denies: cough, hemoptysis, orthopnea, SOB at rest, shortness of breath, SOB with excertion, stridor, wheezing, others Cardiovascular: denies: chest pain, dizzy spells, diaphoresis, Dyspnea on exertion, edema, irregular heart beat, left arm pain, lightheadedness, palpitations, PND, syncope, others Gastrointestinal: reports: nausea, vomiting; denies: abdomen distended, abdominal pain, blood streaked bowels, constipated, diarrhea, dysphagia, difficulty swallowing, hematemesis, melena, poor appetite, poor fluid intake, rectal bleeding, rectal pain, others Genitourinary: denies: burning, dysuria, flank pain, frequency, hematuria, incontinence, penile discharge, penile sore, pain, testicle pain, testicle swelling, urgency, others Neurological: reports: dizziness; denies: fainting, headache, left sided numbness, left sided weakness, numbness, paresthesia, pre-existing deficit, right sided numbness, right sided weakness, seizure, speech problems, tingling, tremors, weakness, others Musculoskeletal: denies: back pain, gout, joint pain, joint swelling, muscle pain, muscle stiffness, neck pain, others Integumetry: denies: bruises, change in color, change in hair/nails, dryness, laceration, lesions, lumps, rash, wounds, others Allergic/Immunocompromised: denies: Difficulty Healing, Frequent Infections, Hives, Itching, others Hematologic/Lymphatic: denies: anemia, blood clots, easy bleeding, easy bruisi ng, swollen glands, others Endocrine: denies: excessive hunger, excessive sweating, excessive thirst, exce ssive urination, flushing, intolerance to cold, intolerance to heat, unexplained weight gain, unexplained weight loss, others Psychiatric: denies: anxiety, bipolar disorder, depression, hopeless, panic disorder, schizophrenia, sleepless, suicidal, others All Other Systems: Reviewed and Negative Physical Exam General Appearance: No Apparent Distress HEENT: Normal ENT Inspection, Pharynx Normal, TMs Normal Neck: Full Range of Motion, Non-Tender, Normal, Normal Inspection Respiratory: Chest Non-Tender, Lungs Clear, No Accessory Muscle Use, No Respiratory Distress, Normal Breath Sounds Cardiovascular: No Edema, No JVD, No Murmur, No Gallop, Normal Peripheral Pulses, Regular Rate/Rhythm Breast Exam: Deferred Gastrointestinal: No Organomegaly, Non Tender, No Pulsatile Mass, Normal Bowel Sounds, Soft Genitalia: Deferred Pelvic: Deferred Rectal: Deferred Extremities: No calf tenderness, Normal capillary refill, Normal inspection, Normal range of motion, Non-tender, No pedal edema Musculoskeletal : Apperance: Normal Neurologic: Alert, motion picture cameraman II-XII nml as Tested, No Motor Deficits, Normal Affect, Normal Mood, No Sensory Deficits Cerebellar Function: Normal Reflexes: Normal Skin: Dry, Normal Color, Warm Lymphatic: No Adenopathy Was a procedure done? Was a procedure done?: No GI differential Dx Differential Diagnosis: Gastritis/PUD, Gastroenteritis, Electrolyte Imbalance, Food Poisoning, Bacterial, Viral X-Ray, Labs, Meds, VS Vital Signs Date Time Temp Pulse Resp B/P (MAP) Pulse Ox O2 Delivery O2 Flow Rate FiO2 08/13/24 15:15 99.0 74 20 111/62 (78) 98 99.0 Lab Test 08/13/24 15:51 Range/Units White Blood Count 7.9 4.4-10.8 10^3/uL Red Blood Count 5.39 4.5-5.90 10^6/uL Hemoglobin 16.3 13.5-17.5 g/dL Hematocrit 49.0 41.0-53.0 % Mean Corpuscular Volume 91.0 80.0-100.0 fL Mean Corpuscular Hemoglobin 30.3 28.0-32.0 pg Mean Corpuscular Hemoglobin Concent 33.3 32.0-36.0 g/dL Red Cell Distribution Width 14.2 11.8-14.3 % Platelet Count 271 140-450 10^3/uL Mean Platelet Volume 7.5 6.9-10.8 fL Neutrophils (%) (Auto) 61.5 37.0-80.0 % Lymphocytes (%) (Auto) 31.7 10.0-50.0 % Monocytes (%) (Auto) 5.3 0.0-12.0 % Eosinophils (%) (Auto) 1.0 0.0-7.0 % Basophils (%) (Auto) 0.5 0.0-2.0 % Neutrophils # (Auto) 4.9 1.6-8.6 10 ^3/uL Lymphocytes # (Auto) 2.5 0.4-5.4 10 ^3/uL Monocytes # (Auto) 0.4 0-1.3 10 ^3/uL Eosinophils # (Auto) 0.1 0-0.8 10 ^3/uL Basophils # (Auto) 0 0-0.2 10 ^3/uL Nucleated Red Blood Cells 0.1 % Sodium Level 135 L 136-145 mmol/L Potassium Level 3.9 3.5-5.1 mmol/L Chloride Level 103 98-107 mmol/L Carbon Dioxide Level 25 20-31 mmol/L Anion Gap 7 5-15 Blood Urea Nitrogen 9 9-23 mg/dL Creatinine 0.97 0.700-1.30 mg/dL Glomerular Filtration Rate Calc 103 >90 mL/min BUN/Creatinine Ratio 9.3 L 10.0-20.0 Serum Glucose 106 74-106 mg/dL Calcium Level 9.9 8.7-10.4 mg/dL Total Bilirubin 0.9 0.2-1.0 mg/dL Aspartate Amino Transferase (AST) 12 L 13-40 U/L Alanine Aminotransferase (ALT) 15 7-40 U/L Alkaline Phosphatase 85 46-116 U/L Total Protein 7.4 5.7-8.2 g/dL Albumin 4.7 3.2-4.8 g/dL Lipase 44 12-53 U/L IV Hep-Lock is being established The patient is given Compazine 10 mg IV push. The patient was given Protonix 40 mg IV push The patient was being discharged with a prescription of Protonix, Compazine The CBC and chemistry panel are within normal limits The patient was given substance abuse counseling. The patient will return to the emergency department's condition worsens. Time of 1ST Reevaluation: 16:00 Reevaluation 1ST: Unchanged Patient Education/Counseling: Diagnosis, Treatment, Prognosis, Need For Follow Up Family Education/Counseling: No Family Present Departure 1 Departure Time of Disposition: 16:39 Impression: Primary Impression: Cannabinoid hyperemesis syndrome Disposition: 01 HOME / SELF CARE / HOMELESS Condition: Fair e-Prescriptions Ondansetron Odt 4MG Tab (ZOFRAN PO) 4 Mg Tb 4 MG PO Q8HP PRN for 5 Days, #15 TAB ODT TAB-DISSOLVE IN MOUTH, THEN SWALLOW Prov: RAMA ROSE MD 08/13/24 Pantoprazole Sodium Sesquihydr (Protonix) 40 Mg Tab 40 MG PO DAILY, #30 TAB Prov: RAMA ROSE MD 08/13/24 Discharged With: Self Critical Care Note Critical Care Time?: No Stability Stability form required: No Heart Score Heart Score: Heart Score Response (Comments) Value History N/A 0 EKG N/A 0 Age N/A 0 Risk Factors N/A 0 Troponin N/A 0 Total 0 I personally scribed for RAMA ROSE MD ([email or web address]) on 08/13/24 at 15:37. Electronically submitted by Rosalba Hutson [email or web address]). RAMA ROSE MD Aug 13, 2024 15:37
[2024-08-13 16:11] LABS: Basophils # (auto) 0 10 ^3/uL (0-0.2); Basophils % (auto) 0.5 % (0.0-2.0); Eosinophils # (auto) 0.1 10 ^3/uL (0-0.8); Hemoglobin 16.3 g/dL (13.5-17.5); Lymphocytes # (auto) 2.5 10 ^3/uL (0.4-5.4); Lymphocytes % (auto) 31.7 % (10.0-50.0); Mean Corpuscular Hemoglobin 30.3 pg (28.0-32.0); Mean Corpuscular Hgb Conc. 33.3 g/dL (32.0-36.0); Monocytes # (auto) 0.4 10 ^3/uL (0-1.3); Monocytes % (auto) 5.3 % (0.0-12.0); Neutrophils # (auto) 4.9 10 ^3/uL (1.6-8.6); Neutrophils % (auto) 61.5 % (37.0-80.0); Nucleated Red Blood Cells % 0.1 %; Platelet Count (auto) 271 10^3/uL (140-450); Red Blood Cells 5.39 10^6/uL (4.5-5.90); Red Cell Distribution Width 14.2 % (11.8-14.3); White Blood Cell 7.9 10^3/uL (4.4-10.8)
[2024-08-13 16:27] LABS: Alanine Aminotransferase 15 U/L (7-40); Albumin 4.7 g/dL (3.2-4.8); Alkaline Phosphatase 85 U/L (46-116); Anion Gap 7 (5-15); BUN/Creatinine Ratio 9.3 (10.0-20.0); Bilirubin, Total 0.9 mg/dL (0.2-1.0); Blood Urea Nitrogen 9 mg/dL (9-23); Calcium 9.9 mg/dL (8.7-10.4); Carbon Dioxide 25 mmol/L (20-31); Chloride 103 mmol/L (98-107); Lipase 44 U/L (12-53); Potassium 3.9 mmol/L (3.5-5.1); Total Protein 7.4 g/dL (5.7-8.2)
[2024-08-13 16:33] LABS: Aspartate Aminotransferase 12 U/L (13-40); Glucose 106 mg/dL (74-106); Sodium 135 mmol/L (136-145)
[2024-08-13] MEDS ORDERED: PANT40TA2 PO (16:37)
[2024-08-13] MEDS ORDERED: ZOFR4T PO (16:37)
[2024-08-13] MEDS ORDERED: MORPHINE SULFATE 4 MG/ML SYR/VIAL IV ONE (17:00)
[2024-08-13] MEDS ORDERED: PANTOPRAZOLE 40 MG/10 ML VIAL INJ IV ONE (17:00)
== END 2024-08-13 19:10 | disposition home or self-care (01) ==
LOC: ER 14:55
DX: F12.90 Cannabis use, unspecified, uncomplicated (principal); R11.2 Nausea with vomiting, unspecified; R10.12 Left upper quadrant pain; R42 Dizziness and giddiness; R50.9 Fever, unspecified; E11.9 Type 2 diabetes mellitus without complications; J45.909 Unspecified asthma, uncomplicated; K21.9 Gastro-esophageal reflux disease without esophagitis; F17.210 Nicotine dependence, cigarettes, uncomplicated; F15.90 Other stimulant use, unspecified, uncomplicated; Z90.49 Acquired absence of other specified parts of digestive tract; Z79.1 Long term (current) use of non-steroidal anti-inflammatories (NSAID); Z79.899 Other long term (current) drug therapy
CPT/HCPCS: 36415; 80053; 83690; 85025